=== PATIENT | male | born 1975 | race Caucasian/White ===

== ENCOUNTER 2017-02-10 11:06 | Emergency (ER) | payer BC ==
[2017-02-10 11:21] VITALS: BP 165/110
--- NOTE | 2017-02-10 11:58 | EDM.PDOC ---
ED HPI GENERAL MEDICAL PROBLEM - General Chief Complaint: Skin Complaint Stated Complaint: FISH HOOK IN LT HAND Time Seen by Provider: 02/10/17 11:53 Source of Information: Reports: Patient - History of Present Illness INITIAL COMMENTS - FREE TEXT/NARRATIVE: Got a lure in his hand today about 1015 while camping. Feels that tetanus is current. Onset: Today Onset Date: 02/10/17 Onset Time: 10:15 Location: Reports: Upper Extremity, Left Quality: Reports: Stabbing Severity: Mild Improves with: Reports: None Worsens with: Reports: None Context: Reports: Activity (fishing) Associated Symptoms: Reports: No Other Symptoms - Related Data Allergies Allergy/AdvReac Type Severity Reaction Status Date / Time No Known Allergies Allergy Verified 02/10/17 11:35 Home Meds: Home Meds Allopurinol [Zyloprim] 02/10/17 [History] Past Medical History - Past Health History Medical/Surgical History: Denies Medical/Surgical History Social & Family History - Tobacco Use Smoking Status *Q: Never Smoker ED ROS GENERAL - Review of Systems Review Of Systems: See Below Constitutional: Reports: No Symptoms HEENT: Reports: No Symptoms Respiratory: Reports: No Symptoms Cardiovascular: Reports: No Symptoms Skin: Reports: Other (fish hook x 2 from a lure) ED EXAM, SKIN/RASH Exam: See Below Exam Limited By: No Limitations General Appearance: Alert, WD/WN, No Apparent Distress Respiratory/Chest: No Respiratory Distress, Lungs Clear, Normal Breath Sounds, No Accessory Muscle Use, Chest Non-Tender Cardiovascular: Normal Peripheral Pulses, Regular Rate, Rhythm, No Edema, No Gallop, No JVD, No Murmur, No Rub Skin: Other (fish hook x 2 from a lure to left thumb and pinky finger) ED SKIN PROCEDURES - Foreign Body Removal Indication:: Fish hook x 2 Consent Obtained:: Patient Performing Doctor:: Dwight Morrison Foreign Body Other Location Comment:: Left thumb and pinky finger Anesthesia Type: Local Anesthesia Other:: 2cc's Lidocaine used per site to numb the area. Findings:: Hook x 2 removed with a needle nose pliers. Bleeding stopped with pressure dressings x 2. Complications:: No Course - Vital Signs Last Recorded V/S: Last Vital Signs Temp 97.5 F 02/10/17 11:39 Pulse 82 02/10/17 11:39 Resp 16 02/10/17 11:39 BP 165/110 H 02/10/17 11:39 Pulse Ox 99 02/10/17 11:39 - Orders/Labs/Meds Meds: Medications Discontinued Medications Generic Name Dose Route Start Last Admin Trade Name Brett PRN Reason Stop Dose Admin Lidocaine HCl 5 ml 02/10/17 11:27 02/10/17 11:41 Xylocaine-Mpf 1% INJECT 02/10/17 11:28 5 ml ONETIME ONE Administration Departure - Departure Time of Disposition: 11:58 Disposition: Home, Self-Care 01 Condition: good Clinical Impression: Foreign body (FB) in soft tissue - Discharge Information Forms: ED Department Discharge Additional Instructions: Keep area clean and dry. Monitor for s/s of infection. Discussed fishing safety. Follow up as needed. - Problem List & Annotations (1) Foreign body (FB) in soft tissue SNOMED Code(s): 694878036 Code(s): M79.5 - RESIDUAL FOREIGN BODY IN SOFT TISSUE Status: Acute Priority: Low Current Visit: Yes
== END 2017-02-10 12:21 | disposition home or self-care (01) ==
LOC: JP.ED 11:06
DX: S60.352A Superficial foreign body of left thumb, initial encounter (principal); S60.457A Superficial foreign body of left little finger, initial encounter; W45.8XXA Other foreign body or object entering through skin, initial encounter
CPT/HCPCS: 99283